=== PATIENT | male | born 1960 | race Caucasian/White ===

== ENCOUNTER 2019-04-15 20:50 | Emergency (ER) | payer MEDICARE ==
[~2019-04-15] VITALS: Ht 167.6 cm; Wt 72.6 kg
--- NOTE | 2019-04-15 20:50 | NUR ---
ED Nurse Note: Pt brought in by pat 57 c/o RT leg pain since AM . Denies fall, no trauma. Pt has been drinking and appears drunk. VSS
--- NOTE | 2019-04-15 21:10 | Emergency Room Report ---
History of Present Illness General Chief Complaint: Lower Back Pain or Injury Source: Patient Present Illness HPI Patient 58-year-old male who presents after increased generalized pain to the epigastric area as well as to the low back. He reports having generalized pain. He states that he had been drinking regularly for several years. Reports having persistent pain to his right lower extremity from playing soccer for many years.Patient reports drinking alcohol daily he denies a fever. He denies dysuria or abdominal pain. He reports urinating normally. He reports having some chronic pain to the right lower extremity. Allergies: Coded Allergies: No Known Allergies (Unverified , 04/15/19) Patient History Past Medical History: see triage record Reviewed Nursing Documentation: PMH: Agreed; PSxH: Agreed Nursing Documentation-PMH Past Medical History Deferred: Patient Unconscious Review of Systems All Other Systems: negative except mentioned in HPI Physical Exam Vital Signs Date Time Temp Pulse Resp B/P (MAP) Pulse Ox O2 Delivery O2 Flow Rate FiO2 04/15/19 20:44 97.9 100 18 136/89 (105) 98 Room Air Sp02 EP Interpretation: reviewed, normal General Appearance: normal inspection, alert, non-toxic, Chronically Ill Head: atraumatic ENT: normal ENT inspection, hearing grossly normal, normal voice Neck: normal inspection, full range of motion, supple, no bony tend Respiratory: normal inspection, lungs clear, normal breath sounds, no respiratory distress, no retraction, no wheezing Cardiovascular #1: regular rate, rhythm, no edema Gastrointestinal: normal inspection, normal bowel sounds, non tender, soft, no guarding, no hernia Genitourinary: no CVA tenderness Musculoskeletal: normal inspection, back normal, normal range of motion Neurologic: normal inspection, alert, responsive, speech normal, other - Slurred speech Psychiatric: normal inspection, judgement/insight normal, mood/affect normal Medical Decision Making Diagnostic Impression: Primary Impression: Alcohol abuse Additional Impression: Exacerbation of chronic back pain ER Course Patient presented for low back pain. Differential included but was not limited to herniated disc, cauda equina syndrome, abdominal aortic aneurysm, perforated ulcer, spinal epidural abscess, spinal stenosis, lumbar fracture, metastatic lesion, pyelonephritis. Patient was noted to initially be intoxicated with alcohol and pain appears to be somewhat chronic. Patient was observed in the emergency department. He was noted to be more sober and was subsequent given nonnarcotic pain medications. Patient was advised alcohol cessation. Does not show any signs of incontinence or urinary retention. At the time of discharge patient is awake alert oriented and able to ambulate without assistance. Patient was given prescription for symptomatic treatment. Patient was advised to recheck with primary care physician in 1-2 days. Patient to return for any worsening, pain, fever, incontinence or other concerns. Last Vital Signs Date Time Temp Pulse Resp B/P (MAP) Pulse Ox O2 Delivery O2 Flow Rate FiO2 04/15/19 20:44 97.9 100 18 136/89 (105) 98 Room Air Status: improved Disposition: HOME, SELF-CARE Condition: Stable Scripts Gabapentin* (GABAPENTIN*) 400 Mg Capsule 400 MG ORAL TWICE A DAY, #20 CAP 0 Refills Prov: Hardeep Mendez MD 04/16/19 Hardeep Mendez MD Apr 15, 2019 21:10
[2019-04-15] MEDS ORDERED: Sucralfate 1gm tab ORAL ONE (21:15)
[2019-04-15] MEDS ORDERED: Albuterol/Ipratropium 3ml neb HHN ONE (21:15)
[2019-04-15 21:19] VITALS: BP 136/89
[2019-04-15] MEDS ORDERED: Acetaminophen 500mg (ES) tab ORAL ONE (22:15)
[2019-04-16 00:30] VITALS: BP 124/81
--- NOTE | 2019-04-16 02:32 | NUR ---
ED Nurse Note: Pt resting in bed with eyes closed, non-labored breathing, no signs of distress. Will continue to monitor
[2019-04-16] MEDS ORDERED: Ketorolac 30mg Inj IM ONE (03:00)
[2019-04-16] MEDS ORDERED: GABAPENTIN400 MG ORAL (04:19)
[2019-04-16 04:25] VITALS: BP 102/60
[2019-04-16 04:44] VITALS: BP 102/60
--- NOTE | 2019-04-16 04:44 | NUR ---
ER DISCHARGE NOTE: Patient is cleared to be discharged per ERMD, pt is aox4, on room air, with stable vital signs. pt was given dc and prescription instructions, pt was able to verbalize understanding, pt id band removed. pt is able to ambulate with steady gait. pt took all belongings.
--- NOTE | 2019-04-17 15:05 | Cardiology Report ---
APPROVED REPORT EKG Measurement Heart [id number] Normal sinus rhythm Possible Anterior infarct, age undetermined Abnormal ECG
== END 2019-04-16 04:44 | disposition home or self-care (01) ==
LOC: EDBD 20:50 → EMR 21:09
DX: M54.5 Low back pain (principal); G89.29 Other chronic pain; F10.10 Alcohol abuse, uncomplicated
CPT/HCPCS: 93005; 94640; 96372; 99284; J1885; J7620